=== PATIENT | male | born 1995 | race Caucasian/White ===

== ENCOUNTER 2022-03-27 12:28 | Emergency (ER) | payer OTHER ==
[~2022-03-27] VITALS: Ht 175.3 cm; Wt 120.2 kg
[2022-03-27 12:39] VITALS: BP_SYST 147
[2022-03-27] MEDS ORDERED: LIDOCAINE 1%, 20 ML MDV 20 ML ONE (14:13)
[2022-03-27] MEDS ORDERED: AMOX-423 PO (14:21)
[2022-03-27] MEDS ORDERED: BACITRACIN 1 GM OINT TP ONE ×2 (14:21→14:30)
[2022-03-27] MEDS ORDERED: LIDOCAINE 1% 10 MG/ML, 20 ML MDV INJ ONE (14:30)
[2022-03-27] MEDS ORDERED: DIPHTH,PERTUSS(ACELL),TET VAC 0.5 ML VIAL (Tdap) I.M. ONE (14:30)
[2022-03-27 15:40] VITALS: BP_SYST 147
== END 2022-03-27 15:40 | disposition home or self-care (01) ==
LOC: SED 12:28
DX: S51.811A Laceration without foreign body of right forearm, initial encounter (principal); Z79.899 Other long term (current) drug therapy; W54.0XXA Bitten by dog, initial encounter; Y93.89 Activity, other specified; Y92.89 Other specified places as the place of occurrence of the external cause; Y99.8 Other external cause status
CPT/HCPCS: 99283; 90715; 90471; 12001; J2001